=== PATIENT | male | born 1940 | race Caucasian/White ===

== ENCOUNTER 2024-07-19 11:40 | Emergency (ER) | payer BC, MEDICARE ==
[~2024-07-19] VITALS: Ht 170.2 cm; Wt 55.0 kg
[2024-07-19 11:40] VITALS: O2SAT 90
[~2024-07-19 11:40] MED LIST: ACET-2708 MT; NA P230E RC; POLY119P2 MT
[2024-07-19 11:45] VITALS: BP 0/0; PULSE 0; RESP 0; O2SAT 90
== END 2024-07-19 12:46 ==
LOC: ER 12:30
DX: I46.9 Cardiac arrest, cause unspecified (principal); F03.90 Unspecified dementia, unspecified severity, without behavioral disturbance, psychotic disturbance, mood disturbance, and anxiety; I10 Essential (primary) hypertension
CPT/HCPCS: 99285